=== PATIENT | male | born 1950 | race Caucasian/White ===

== ENCOUNTER 2018-03-04 11:46 | Inpatient (IN) | payer MEDICARE, MEDICAID ==
[~2018-03-04] VITALS: Ht 170.2 cm; Wt 90.0 kg
[~2018-03-04 11:46] MED LIST: APIX5TAB3 PO; ATOR40TA3 PO; GLIP10TA11 PO; HYDR-569 PO; LINA5TAB4 PO; METF500T PO; METO-467 PO; NITR0.4T51 SL; RANI300T7 PO; levoFLOXACIN-Levaquin 750MG/D5 150 ML IV ONE
[2018-03-04 12:56] LABS: BASOPHILS # (AUTO) 0.1 X10'3 (0-0.2); BASOPHILS % (AUTO) 0.4 % (0-1); EOSINOPHILS # (AUTO) 0.2 X10'3 (0-0.9); EOSINOPHILS % (AUTO) 1.7 % (0-6); HEMATOCRIT 43.2 % (42.0-52.0); HEMOGLOBIN 14.8 g/dl (14.0-17.9); LYMPHOCYTES # (AUTO) 1.8 X10'3 (1.1-4.8); LYMPHOCYTES % (AUTO) 12.3 % (21-51); MEAN CORPUSCULAR HEMOGLOBIN 32.1 PG (27.0-31.0); MEAN CORPUSCULAR HGB CONC 34.4 % (33.0-36.5); MEAN CORPUSCULAR VOLUME 93.3 FL (78-98); MEAN PLATELET VOLUME 9.2 FL (7.4-10.4); MONOCYTES # (AUTO) 0.7 X10'3 (0-0.9); MONOCYTES % (AUTO) 4.9 % (2-12); NEUTROPHILS # (AUTO) 11.9 X10'3 (1.8-7.7); NEUTROPHILS % (AUTO) 80.7 % (42-75); PLATELET COUNT 205 X10'3 (140-440); RED BLOOD COUNT 4.63 X10'6 (4.70-6.10); WHITE BLOOD COUNT 14.8 X10'3 (4.5-11.0)
[2018-03-04 13:09] LABS: ALANINE AMINOTRANSFERASE 18 U/L (12-78); ALBUMIN 3.9 G/DL (3.4-5.0); ALBUMIN/GLOBULIN RATIO 0.8 (1.1-1.5); ALKALINE PHOSPHATASE 143 IU/L (46-116); ANION GAP 12 (8-16); ASPARTATE AMINO TRANSFERASE 14 U/L (10-37); BLOOD UREA NITROGEN 20 MG/DL (7-18); BUN/CREATININE RATIO 12.6 (5.4-32.0); CALCIUM 9.2 MG/DL (8.5-10.1); CHLORIDE 95 MMOL/L (99-107); CREATININE 1.59 MG/DL (0.60-1.10); GLUCOSE 368 MG/DL (70-104); POTASSIUM 4.2 MMOL/L (3.5-5.1); SODIUM 134 MMOL/L (135-145); TOTAL CARBON DIOXIDE 26.6 MMOL/L (24-32); TOTAL PROTEIN 8.5 G/DL (6.4-8.2); eGFR 44 ML/MIN
[2018-03-04] MEDS ORDERED: dextrose ORAL solution 15 GM/59 ML bottle PO PRN ×2 (15:50)
[2018-03-04] MEDS ORDERED: magnesium hydroxide 30ml (MOM) UD suspension PO PRN (15:50)
[2018-03-04] MEDS ORDERED: MESSAGE TO PHARMACY PO ONE (15:50)
[2018-03-04] MEDS ORDERED: ondansetron/PF 4mg/2ml inj IV PRN (15:50)
[2018-03-04] MEDS ORDERED: acetaminophen 325mg tablet PO PRN (15:50)
[2018-03-04] MEDS ORDERED: dextrose 50%-water 50ml dispensing syringe IV PRN ×2 (15:50)
[2018-03-04] MEDS ORDERED: glucagon, human recombinant 1mg kit SUBCUT PRN (15:50)
[2018-03-04] MEDS ORDERED: mag hydrox/Alum hydrox/simeth 30ml oral suspension PO PRN (15:50)
[2018-03-04] MEDS ORDERED: HYDROcodone/acetaminophen 5mg/325mg tablet PO PRN (15:55)
[2018-03-04] MEDS ORDERED: nitroGLYCERIN 0.4mg SUBLingual tab SL PRN (15:55)
[2018-03-04 16:23] LABS: HEMOGLOBIN A1C 8.9 % (4.5-6.2)
[2018-03-04] MEDS ORDERED: metoprolol tartrate 50mg tablet PO ONE (17:00)
[2018-03-04 18:00] VITALS: BP 159/87
[2018-03-04 18:51] VITALS: BP 154/87
[2018-03-04] MEDS: metoprolol tartrate 50mg tablet PO SCH (19:51)
[2018-03-04] MEDS: famotidine 20mg tablet PO SCH (19:51)
[2018-03-04] MEDS: insulin Lispro (HumaLOG) vial - multi-dose SQ SCH (19:55)
[2018-03-04] MEDS: insulin glargine (Lantus) pen - multi-dose SQ SCH (21:14)
[2018-03-05] VITALS: BP 121/55
[2018-03-05 07:30] VITALS: BP 94/59
[2018-03-05] MEDS: levoFLOXACIN-Levaquin 500mg/D5 100 ML IV SCH (07:38)
[2018-03-05] MEDS: famotidine 20mg tablet PO SCH ×2 (07:38→20:34)
[2018-03-05] MEDS: metoprolol tartrate 50mg tablet PO SCH ×2 (07:38→20:34)
[2018-03-05] MEDS: atorvastatin 20mg tablet PO SCH ×2 (07:39→20:34)
[2018-03-05 11:00] VITALS: BP 124/63
[2018-03-05] MEDS: metroNIDAZOLE-Flagyl 500mg/NS 100 ML IV SCH ×2 (13:03→20:34)
[2018-03-05] MEDS: insulin Lispro (HumaLOG) vial - multi-dose SQ SCH ×2 (15:43→19:18)
[2018-03-05 18:00] VITALS: BP 107/73
[2018-03-05] MEDS: insulin glargine (Lantus) pen - multi-dose SQ SCH (21:00)
[2018-03-06] VITALS: BP 108/51
[2018-03-06] MEDS: metroNIDAZOLE-Flagyl 500mg/NS 100 ML IV SCH ×3 (04:59→21:00)
[2018-03-06 07:22] VITALS: BP 118/61
[2018-03-06] MEDS: atorvastatin 20mg tablet PO SCH ×2 (08:36→21:00)
[2018-03-06] MEDS: metoprolol tartrate 50mg tablet PO SCH ×2 (08:36→21:00)
[2018-03-06] MEDS: famotidine 20mg tablet PO SCH ×2 (08:36→21:00)
[2018-03-06] MEDS: levoFLOXACIN-Levaquin 500mg/D5 100 ML IV SCH (08:36)
[2018-03-06] MEDS: insulin Lispro (HumaLOG) vial - multi-dose SQ SCH ×3 (08:47→18:30)
[2018-03-06 11:21] VITALS: BP 105/73
[2018-03-06 18:30] VITALS: BP 145/77
[2018-03-06] MEDS: apixaban 5mg tablet PO SCH (21:00)
[2018-03-06] MEDS: insulin glargine (Lantus) pen - multi-dose SQ SCH (21:26)
[2018-03-07] MEDS: metroNIDAZOLE-Flagyl 500mg/NS 100 ML IV SCH ×3 (05:27→21:33)
[2018-03-07 05:51] LABS: BASOPHILS % (AUTO) 0.3 % (0-1); EOSINOPHILS % (AUTO) 0.2 % (0-6); HEMATOCRIT 43.9 % (42.0-52.0); HEMOGLOBIN 14.7 g/dl (14.0-17.9); LYMPHOCYTES # (AUTO) 2.2 X10'3 (1.1-4.8); LYMPHOCYTES % (AUTO) 17.7 % (21-51); MEAN CORPUSCULAR HGB CONC 33.5 % (33.0-36.5); MEAN CORPUSCULAR VOLUME 92.7 FL (78-98); MEAN PLATELET VOLUME 9.8 FL (7.4-10.4); MONOCYTES # (AUTO) 0.6 X10'3 (0-0.9); MONOCYTES % (AUTO) 5.1 % (2-12); NEUTROPHILS # (AUTO) 9.9 X10'3 (1.8-7.7); NEUTROPHILS % (AUTO) 76.7 % (42-75); PLATELET COUNT 244 X10'3 (140-440); RED BLOOD COUNT 4.74 X10'6 (4.70-6.10); RED CELL DISTRIBUTION WIDTH 12.3 % (11.5-14.5); WHITE BLOOD COUNT 12.7 X10'3 (4.5-11.0)
[2018-03-07 05:53] LABS: ALANINE AMINOTRANSFERASE 17 U/L (12-78); ALBUMIN 3.5 G/DL (3.4-5.0); ALBUMIN/GLOBULIN RATIO 0.8 (1.1-1.5); ALKALINE PHOSPHATASE 121 IU/L (46-116); ANION GAP 12 (8-16); ASPARTATE AMINO TRANSFERASE 14 U/L (10-37); BILIRUBIN,TOTAL 1.2 MG/DL (0.1-1.0); BLOOD UREA NITROGEN 22 MG/DL (7-18); BUN/CREATININE RATIO 16.4 (5.4-32.0); CHLORIDE 103 MMOL/L (99-107); CREATININE 1.34 MG/DL (0.60-1.10); GLUCOSE 160 MG/DL (70-104); POTASSIUM 3.7 MMOL/L (3.5-5.1); SODIUM 141 MMOL/L (135-145); TOTAL CARBON DIOXIDE 25.8 MMOL/L (24-32); eGFR 53 ML/MIN
[2018-03-07 07:38] VITALS: BP 106/54
[2018-03-07] MEDS ORDERED: linagliptin 5mg tablet PO SCH (08:00)
[2018-03-07 08:06] VITALS: BP 104/64
[2018-03-07] MEDS: apixaban 5mg tablet PO SCH (09:13)
[2018-03-07] MEDS: levoFLOXACIN-Levaquin 500mg/D5 100 ML IV SCH (09:13)
[2018-03-07] MEDS: atorvastatin 20mg tablet PO SCH ×2 (09:14→21:35)
[2018-03-07] MEDS: metoprolol tartrate 50mg tablet PO SCH ×2 (09:15→20:01)
[2018-03-07] MEDS: famotidine 20mg tablet PO SCH ×2 (09:16→20:01)
[2018-03-07] MEDS: insulin Lispro (HumaLOG) vial - multi-dose SQ SCH ×3 (09:24→19:36)
[2018-03-07 11:30] VITALS: BP 119/59
[2018-03-07] MEDS ORDERED: heparin 10,000 units/1 ML INJ IV PRN (17:35)
[2018-03-07 18:30] LABS: BASOPHILS # (AUTO) 0.1 X10'3 (0-0.2); BASOPHILS % (AUTO) 0.4 % (0-1); EOSINOPHILS # (AUTO) 0.1 X10'3 (0-0.9); HEMATOCRIT 41.9 % (42.0-52.0); HEMOGLOBIN 14.2 g/dl (14.0-17.9); LYMPHOCYTES # (AUTO) 2.3 X10'3 (1.1-4.8); LYMPHOCYTES % (AUTO) 20.4 % (21-51); MEAN CORPUSCULAR HEMOGLOBIN 31.9 PG (27.0-31.0); MEAN CORPUSCULAR HGB CONC 33.9 % (33.0-36.5); MEAN CORPUSCULAR VOLUME 94.1 FL (78-98); MEAN PLATELET VOLUME 9.4 FL (7.4-10.4); MONOCYTES # (AUTO) 0.8 X10'3 (0-0.9); MONOCYTES % (AUTO) 7.2 % (2-12); NEUTROPHILS # (AUTO) 8.1 X10'3 (1.8-7.7); PLATELET COUNT 208 X10'3 (140-440); RED BLOOD COUNT 4.45 X10'6 (4.70-6.10); RED CELL DISTRIBUTION WIDTH 13.2 % (11.5-14.5); WHITE BLOOD COUNT 11.3 X10'3 (4.5-11.0)
[2018-03-07 18:34] LABS: INR 1.1 INR; PARTIAL THROMBOPLASTIN TIME 28 SECONDS (22-32); PROTHROMBIN TIME 11.1 SECONDS (9.0-12.0)
[2018-03-07 19:20] VITALS: BP 119/75
[2018-03-07] MEDS: lactobacillus rhamnosus 10,000 MMU CELLS/CAPSULE PO SCH (20:01)
[2018-03-07] MEDS: heparin 10,000 units/1 ML INJ IV PRN (20:12)
[2018-03-07] MEDS: insulin glargine (Lantus) pen - multi-dose SQ SCH (21:52)
[2018-03-08] VITALS: BP 108/61
[2018-03-08 02:15] LABS: ALANINE AMINOTRANSFERASE 18 U/L (12-78); ALBUMIN 2.9 G/DL (3.4-5.0); ALBUMIN/GLOBULIN RATIO 0.8 (1.1-1.5); ALKALINE PHOSPHATASE 111 IU/L (46-116); ANION GAP 12 (8-16); ASPARTATE AMINO TRANSFERASE 28 U/L (10-37); BILIRUBIN,TOTAL 0.8 MG/DL (0.1-1.0); BLOOD UREA NITROGEN 26 MG/DL (7-18); BUN/CREATININE RATIO 17.7 (5.4-32.0); CALCIUM 8.6 MG/DL (8.5-10.1); CHLORIDE 104 MMOL/L (99-107); CREATININE 1.47 MG/DL (0.60-1.10); GLUCOSE 250 MG/DL (70-104); SODIUM 138 MMOL/L (135-145); TOTAL CARBON DIOXIDE 21.6 MMOL/L (24-32); TOTAL PROTEIN 6.7 G/DL (6.4-8.2); eGFR 48 ML/MIN
[2018-03-08 02:22] LABS: BASOPHILS % (AUTO) 0.2 % (0-1); EOSINOPHILS # (AUTO) 0.2 X10'3 (0-0.9); EOSINOPHILS % (AUTO) 1.6 % (0-6); HEMATOCRIT 36.9 % (42.0-52.0); HEMOGLOBIN 12.7 g/dl (14.0-17.9); LYMPHOCYTES # (AUTO) 2.7 X10'3 (1.1-4.8); LYMPHOCYTES % (AUTO) 25.7 % (21-51); MEAN CORPUSCULAR HEMOGLOBIN 32.3 PG (27.0-31.0); MEAN CORPUSCULAR HGB CONC 34.4 % (33.0-36.5); MEAN CORPUSCULAR VOLUME 93.7 FL (78-98); MEAN PLATELET VOLUME 9.3 FL (7.4-10.4); MONOCYTES # (AUTO) 0.7 X10'3 (0-0.9); MONOCYTES % (AUTO) 6.7 % (2-12); NEUTROPHILS % (AUTO) 65.8 % (42-75); PLATELET COUNT 201 X10'3 (140-440); RED BLOOD COUNT 3.94 X10'6 (4.70-6.10); RED CELL DISTRIBUTION WIDTH 12.8 % (11.5-14.5); WHITE BLOOD COUNT 10.6 X10'3 (4.5-11.0)
[2018-03-08] MEDS: metroNIDAZOLE-Flagyl 500mg/NS 100 ML IV SCH ×3 (04:32→21:25)
[2018-03-08 07:00] VITALS: BP 120/73
[2018-03-08] MEDS: heparin 10,000 units/1 ML INJ IV PRN ×2 (07:49→23:05)
[2018-03-08] MEDS: lactobacillus rhamnosus 10,000 MMU CELLS/CAPSULE PO SCH ×2 (07:58→19:38)
[2018-03-08] MEDS: atorvastatin 20mg tablet PO SCH ×2 (07:59→21:25)
[2018-03-08] MEDS: metoprolol tartrate 50mg tablet PO SCH ×2 (07:59→19:38)
[2018-03-08] MEDS: famotidine 20mg tablet PO SCH ×2 (08:00→19:38)
[2018-03-08] MEDS: insulin Lispro (HumaLOG) vial - multi-dose SQ SCH ×3 (09:00→19:41)
[2018-03-08] MEDS: levoFLOXACIN-Levaquin 500mg/D5 100 ML IV SCH (09:40)
[2018-03-08 11:00] VITALS: BP 95/59
[2018-03-08 11:44] VITALS: BP 121/73
[2018-03-08 19:00] VITALS: BP 129/57
[2018-03-08] MEDS: insulin glargine (Lantus) pen - multi-dose SQ SCH (21:29)
[2018-03-09] VITALS (20 sets, daily range): BP systolic 111–135; BP diastolic 57–80
[2018-03-09] MEDS: metroNIDAZOLE-Flagyl 500mg/NS 100 ML IV SCH ×3 (05:01→21:36)
[2018-03-09 06:02] LABS: ALANINE AMINOTRANSFERASE 19 U/L (12-78); ALBUMIN 2.8 G/DL (3.4-5.0); ALBUMIN/GLOBULIN RATIO 0.8 (1.1-1.5); ALKALINE PHOSPHATASE 105 IU/L (46-116); ANION GAP 10 (8-16); ASPARTATE AMINO TRANSFERASE 21 U/L (10-37); BILIRUBIN,TOTAL 0.5 MG/DL (0.1-1.0); BLOOD UREA NITROGEN 23 MG/DL (7-18); BUN/CREATININE RATIO 16.8 (5.4-32.0); CALCIUM 8.2 MG/DL (8.5-10.1); CHLORIDE 105 MMOL/L (99-107); CREATININE 1.37 MG/DL (0.60-1.10); GLUCOSE 165 MG/DL (70-104); POTASSIUM 3.9 MMOL/L (3.5-5.1); SODIUM 138 MMOL/L (135-145); TOTAL CARBON DIOXIDE 23.5 MMOL/L (24-32); TOTAL PROTEIN 6.2 G/DL (6.4-8.2); eGFR 52 ML/MIN
[2018-03-09 06:14] LABS: BASOPHILS % (AUTO) 0.4 % (0-1); EOSINOPHILS # (AUTO) 0.1 X10'3 (0-0.9); HEMOGLOBIN 12.2 g/dl (14.0-17.9); LYMPHOCYTES # (AUTO) 2.4 X10'3 (1.1-4.8); LYMPHOCYTES % (AUTO) 25.2 % (21-51); MEAN CORPUSCULAR HEMOGLOBIN 32.4 PG (27.0-31.0); MEAN CORPUSCULAR HGB CONC 34.9 % (33.0-36.5); MEAN CORPUSCULAR VOLUME 92.9 FL (78-98); MEAN PLATELET VOLUME 9.7 FL (7.4-10.4); MONOCYTES # (AUTO) 0.7 X10'3 (0-0.9); MONOCYTES % (AUTO) 7.8 % (2-12); NEUTROPHILS # (AUTO) 6.4 X10'3 (1.8-7.7); NEUTROPHILS % (AUTO) 65.6 % (42-75); PLATELET COUNT 203 X10'3 (140-440); RED BLOOD COUNT 3.77 X10'6 (4.70-6.10); RED CELL DISTRIBUTION WIDTH 11.8 % (11.5-14.5); WHITE BLOOD COUNT 9.6 X10'3 (4.5-11.0)
[2018-03-09] MEDS: metoprolol tartrate 50mg tablet PO SCH ×2 (07:46→21:48)
[2018-03-09] MEDS: levoFLOXACIN-Levaquin 500mg/D5 100 ML IV SCH (07:46)
[2018-03-09] MEDS: atorvastatin 20mg tablet PO SCH ×2 (07:57→21:48)
[2018-03-09] MEDS: famotidine 20mg tablet PO SCH ×2 (07:57→21:48)
[2018-03-09] MEDS: lactobacillus rhamnosus 10,000 MMU CELLS/CAPSULE PO SCH ×2 (07:57→21:48)
[2018-03-09 08:32] LABS: INR 1.1 INR; PROTHROMBIN TIME 11.4 SECONDS (9.0-12.0)
[2018-03-09] MEDS: insulin Lispro (HumaLOG) vial - multi-dose SQ SCH ×3 (09:46→19:05)
[2018-03-09] MEDS ORDERED: ceFAZolin 1000mg inj ONE (13:38)
[2018-03-09] MEDS ORDERED: fentaNYL/PF 50MCG/1 ML 2ML syringe ONE (14:13)
[2018-03-09] MEDS ORDERED: midazolam 2 mg/2 ml injection ONE (14:14)
[2018-03-09] MEDS ORDERED: ringers solution, lacted 1,000 ML IV SCH (14:46)
[2018-03-09] MEDS ORDERED: acetaminophen 1,000mg/100ml IV 100 ML IV PRN (14:50)
[2018-03-09] MEDS ORDERED: meperidine/PF 50mg/ml syringe IV PRN ×3 (14:50)
[2018-03-09] MEDS ORDERED: ondansetron/PF 4mg/2ml inj IV PRN (14:50)
[2018-03-09] MEDS ORDERED: proCHLORperazine 10 MG/2 ml inj IV PRN (14:50)
[2018-03-09] MEDS ORDERED: fentaNYL/PF 50MCG/1 ML 2ML syringe IV PRN ×2 (14:50)
[2018-03-09] MEDS ORDERED: LIDOcaine 2% (20mg/ml) 5ml vial ONE (14:56)
[2018-03-09] MEDS ORDERED: propofol inj 20 ML IV ONE (14:56)
[2018-03-09] MEDS: insulin glargine (Lantus) pen - multi-dose SQ SCH (21:34)
[2018-03-10] VITALS: BP 98/53
[2018-03-10 04:30] VITALS: BP 107/54
[2018-03-10] MEDS: metroNIDAZOLE-Flagyl 500mg/NS 100 ML IV SCH ×3 (05:31→21:50)
[2018-03-10 05:40] LABS: BASOPHILS % (AUTO) 0.3 % (0-1); EOSINOPHILS # (AUTO) 0.1 X10'3 (0-0.9); EOSINOPHILS % (AUTO) 1.1 % (0-6); HEMATOCRIT 35.8 % (42.0-52.0); HEMOGLOBIN 12.5 g/dl (14.0-17.9); LYMPHOCYTES # (AUTO) 1.9 X10'3 (1.1-4.8); LYMPHOCYTES % (AUTO) 21.2 % (21-51); MEAN CORPUSCULAR HEMOGLOBIN 32.2 PG (27.0-31.0); MEAN CORPUSCULAR VOLUME 92.1 FL (78-98); MEAN PLATELET VOLUME 9.2 FL (7.4-10.4); MONOCYTES # (AUTO) 0.6 X10'3 (0-0.9); MONOCYTES % (AUTO) 7.2 % (2-12); NEUTROPHILS # (AUTO) 6.2 X10'3 (1.8-7.7); NEUTROPHILS % (AUTO) 70.2 % (42-75); PLATELET COUNT 199 X10'3 (140-440); RED BLOOD COUNT 3.89 X10'6 (4.70-6.10); RED CELL DISTRIBUTION WIDTH 12.8 % (11.5-14.5); WHITE BLOOD COUNT 8.9 X10'3 (4.5-11.0)
[2018-03-10 06:15] LABS: ALANINE AMINOTRANSFERASE 16 U/L (12-78); ALBUMIN 2.8 G/DL (3.4-5.0); ALBUMIN/GLOBULIN RATIO 0.8 (1.1-1.5); ALKALINE PHOSPHATASE 95 IU/L (46-116); ANION GAP 10 (8-16); ASPARTATE AMINO TRANSFERASE 24 U/L (10-37); BILIRUBIN,TOTAL 0.6 MG/DL (0.1-1.0); BLOOD UREA NITROGEN 19 MG/DL (7-18); BUN/CREATININE RATIO 14.4 (5.4-32.0); CALCIUM 8.4 MG/DL (8.5-10.1); CHLORIDE 108 MMOL/L (99-107); CREATININE 1.32 MG/DL (0.60-1.10); GLUCOSE 150 MG/DL (70-104); POTASSIUM 4.1 MMOL/L (3.5-5.1); SODIUM 142 MMOL/L (135-145); TOTAL CARBON DIOXIDE 24.4 MMOL/L (24-32); TOTAL PROTEIN 6.5 G/DL (6.4-8.2); eGFR 54 ML/MIN
[2018-03-10 07:47] VITALS: BP 121/70
[2018-03-10] MEDS: lactobacillus rhamnosus 10,000 MMU CELLS/CAPSULE PO SCH ×2 (09:11→19:21)
[2018-03-10] MEDS: atorvastatin 20mg tablet PO SCH ×2 (09:11→21:50)
[2018-03-10] MEDS: metoprolol tartrate 50mg tablet PO SCH ×2 (09:11→19:20)
[2018-03-10] MEDS: famotidine 20mg tablet PO SCH ×2 (09:11→19:20)
[2018-03-10] MEDS: apixaban 2.5mg tablet PO SCH ×2 (09:12→19:21)
[2018-03-10] MEDS: levoFLOXACIN-Levaquin 500mg/D5 100 ML IV SCH (09:12)
[2018-03-10] MEDS: insulin Lispro (HumaLOG) vial - multi-dose SQ SCH ×3 (10:59→19:15)
[2018-03-10 11:00] VITALS: BP 121/72
[2018-03-10 19:15] VITALS: BP 118/75
[2018-03-10] MEDS: insulin glargine (Lantus) pen - multi-dose SQ SCH (21:49)
[2018-03-11] VITALS: BP 104/46
[2018-03-11] MEDS: metroNIDAZOLE-Flagyl 500mg/NS 100 ML IV SCH ×2 (05:00→13:56)
[2018-03-11 05:38] LABS: BASOPHILS % (AUTO) 0.5 % (0-1); EOSINOPHILS # (AUTO) 0.2 X10'3 (0-0.9); EOSINOPHILS % (AUTO) 1.7 % (0-6); HEMATOCRIT 36.3 % (42.0-52.0); HEMOGLOBIN 12.5 g/dl (14.0-17.9); LYMPHOCYTES # (AUTO) 2.1 X10'3 (1.1-4.8); LYMPHOCYTES % (AUTO) 23.2 % (21-51); MEAN CORPUSCULAR HEMOGLOBIN 31.5 PG (27.0-31.0); MEAN CORPUSCULAR HGB CONC 34.3 % (33.0-36.5); MEAN CORPUSCULAR VOLUME 91.8 FL (78-98); MEAN PLATELET VOLUME 9.5 FL (7.4-10.4); MONOCYTES # (AUTO) 0.7 X10'3 (0-0.9); MONOCYTES % (AUTO) 7.5 % (2-12); NEUTROPHILS # (AUTO) 6.2 X10'3 (1.8-7.7); NEUTROPHILS % (AUTO) 67.1 % (42-75); PLATELET COUNT 189 X10'3 (140-440); RED BLOOD COUNT 3.96 X10'6 (4.70-6.10); WHITE BLOOD COUNT 9.2 X10'3 (4.5-11.0)
[2018-03-11 06:16] LABS: ALANINE AMINOTRANSFERASE 17 U/L (12-78); ALBUMIN 2.8 G/DL (3.4-5.0); ALBUMIN/GLOBULIN RATIO 0.8 (1.1-1.5); ALKALINE PHOSPHATASE 87 IU/L (46-116); ANION GAP 11 (8-16); ASPARTATE AMINO TRANSFERASE 25 U/L (10-37); BILIRUBIN,TOTAL 0.7 MG/DL (0.1-1.0); BLOOD UREA NITROGEN 18 MG/DL (7-18); BUN/CREATININE RATIO 16.2 (5.4-32.0); CALCIUM 8.4 MG/DL (8.5-10.1); CHLORIDE 108 MMOL/L (99-107); CREATININE 1.11 MG/DL (0.60-1.10); GLUCOSE 88 MG/DL (70-104); POTASSIUM 3.8 MMOL/L (3.5-5.1); SODIUM 142 MMOL/L (135-145); TOTAL CARBON DIOXIDE 22.9 MMOL/L (24-32); TOTAL PROTEIN 6.3 G/DL (6.4-8.2); eGFR 66 ML/MIN
[2018-03-11 07:00] VITALS: BP 115/70
[2018-03-11] MEDS: levoFLOXACIN-Levaquin 500mg/D5 100 ML IV SCH (07:52)
[2018-03-11] MEDS: metoprolol tartrate 50mg tablet PO SCH (07:53)
[2018-03-11] MEDS: lactobacillus rhamnosus 10,000 MMU CELLS/CAPSULE PO SCH (07:53)
[2018-03-11] MEDS: apixaban 2.5mg tablet PO SCH (07:53)
[2018-03-11] MEDS: atorvastatin 20mg tablet PO SCH (07:53)
[2018-03-11] MEDS: famotidine 20mg tablet PO SCH (07:54)
[2018-03-11] MEDS: insulin Lispro (HumaLOG) vial - multi-dose SQ SCH ×2 (08:49→13:35)
[2018-03-11] MEDS ORDERED: LEVO750T21 PO (10:45)
[2018-03-12] MEDS ORDERED: levoFLOXACIN-Levaquin 750MG/D5 150 ML IV SCH (08:00)
== END 2018-03-11 16:59 | disposition home health service (06) | DRG 854 ==
LOC: ER 11:47 → ED HOLD 15:48 → SUR 3N 18:00
PROVIDERS: ADMIT Internal Medicine; ATTEND Legal Medicine
PROC: 0Y6U0Z0 Detachment at Left 3rd Toe, Complete, Open Approach (ICD-10-PCS; principal; 2018-03-09 14:10)
DX: A41.9 Sepsis, unspecified organism (principal); N17.9 Acute kidney failure, unspecified; E11.21 Type 2 diabetes mellitus with diabetic nephropathy; M86.172 Other acute osteomyelitis, left ankle and foot; I48.91 Unspecified atrial fibrillation; L03.116 Cellulitis of left lower limb; E11.40 Type 2 diabetes mellitus with diabetic neuropathy, unspecified; E11.52 Type 2 diabetes mellitus with diabetic peripheral angiopathy with gangrene; E11.22 Type 2 diabetes mellitus with diabetic chronic kidney disease; E11.621 Type 2 diabetes mellitus with foot ulcer; N18.9 Chronic kidney disease, unspecified; E78.5 Hyperlipidemia, unspecified; L03.032 Cellulitis of left toe; I12.9 Hypertensive chronic kidney disease with stage 1 through stage 4 chronic kidney disease, or unspecified chronic kidney disease; L97.529 Non-pressure chronic ulcer of other part of left foot with unspecified severity; E11.69 Type 2 diabetes mellitus with other specified complication; I25.10 Atherosclerotic heart disease of native coronary artery without angina pectoris; I25.2 Old myocardial infarction; Z95.1 Presence of aortocoronary bypass graft; Z89.412 Acquired absence of left great toe; Z88.5 Allergy status to narcotic agent; Z88.0 Allergy status to penicillin; Z79.899 Other long term (current) drug therapy; Z79.01 Long term (current) use of anticoagulants; Z79.84 Long term (current) use of oral hypoglycemic drugs
CPT/HCPCS: 36415; 71045; 73620; 73718; 80053; 82948; 83036; 83605; 85025; 85610; 85651; 85730; 87040; 87070; 87075; 87077; 87102; 87186; 88305; 93005; 96365; 99285; A4649; A6257; A6258; A6402; A6449; A7000; J0131; J0690; J1644; J1815; J1956; J2001; J2175; J2250; J2405; J2704; J3010; J3490; J7030; J7120